=== PATIENT | female | born 1985 | race Caucasian/White ===

== ENCOUNTER → 2020-11-10 | Outpatient (CLI) | payer OTHER | LOC: US 13:31 | DX: O12.00 Gestational edema, unspecified trimester (principal); Z3A.00 Weeks of gestation of pregnancy not specified | CPT/HCPCS: 93971 ==

== ENCOUNTER 2020-12-25 22:39 | Emergency (ER) | payer OTHER ==
[2020-12-25] MEDS ORDERED: CLEOCIN HCL300 MG PO (23:11)
== END 2020-12-25 23:29 | disposition home or self-care (01) ==
LOC: ER1 22:39
DX: O99.612 Diseases of the digestive system complicating pregnancy, second trimester (principal); K04.7 Periapical abscess without sinus; K02.9 Dental caries, unspecified; F17.200 Nicotine dependence, unspecified, uncomplicated; Z3A.27 27 weeks gestation of pregnancy; Z88.0 Allergy status to penicillin
CPT/HCPCS: 99282

== ENCOUNTER 2021-02-12 18:57 | Outpatient (CLI) | payer OTHER ==
[~2021-02-12 18:57] MED LIST: CLEOCIN HCL300 MG PO
== END 2021-02-12 21:15 | disposition home or self-care (01) ==
LOC: GENOP 18:57
DX: O47.03 False labor before 37 completed weeks of gestation, third trimester (principal); O44.03 Complete placenta previa NOS or without hemorrhage, third trimester; Z3A.34 34 weeks gestation of pregnancy
CPT/HCPCS: 59025

== ENCOUNTER 2021-02-21 19:01 | Outpatient (CLI) | payer OTHER | END 2021-02-21 20:53 | disposition home or self-care (01) | LOC: GENOP 19:01 | DX: O47.00 False labor before 37 completed weeks of gestation, unspecified trimester (principal); Z3A.36 36 weeks gestation of pregnancy | CPT/HCPCS: 59025 ==

== ENCOUNTER 2021-02-25 05:52 | Outpatient (CLI) | payer OTHER | END 2021-02-25 07:35 | disposition home or self-care (01) | LOC: GENOP 05:52 | DX: O47.1 False labor at or after 37 completed weeks of gestation (principal); Z3A.37 37 weeks gestation of pregnancy | CPT/HCPCS: G0463 ==

== ENCOUNTER 2021-03-01 05:27 | Inpatient (IN) | payer OTHER ==
[~2021-03-01] VITALS: Ht 162.6 cm; Wt 68.9 kg
[2021-03-01] MEDS ORDERED: PRENATAL VITAM1 EAC6 PO (06:22)
[2021-03-01 06:24] LABS: HEMOGLOBIN 11.6 gm/dl (12.3-15.3); RED BLOOD COUNT 3.45 M/UL (4.00-5.10); WHITE BLOOD COUNT 13.2 K/UL (4.5-11.0)
[2021-03-01] MEDS ORDERED: COLACE100 MG PO (11:11)
[2021-03-01] MEDS ORDERED: HEMOCYTE324 MG PO (11:11)
[2021-03-01] MEDS ORDERED: PERCOCET 5/325 T1 EA PO (11:11)
[2021-03-02 05:20] LABS: HEMOGLOBIN 9.9 gm/dl (12.3-15.3)
[2021-03-03] MEDS ORDERED: TYLOPHEN500 MG PO (08:17)
== END 2021-03-03 15:57 | disposition home or self-care (01) | DRG 788 ==
LOC: OB 05:27
PROVIDERS: ADMIT Obstetrics & Gynecology
PROC: 3E0234Z Introduction of Serum, Toxoid and Vaccine into Muscle, Percutaneous Approach (ICD-10-PCS; 2021-03-01)
PROC: 10D00Z1 Extraction of Products of Conception, Low, Open Approach (ICD-10-PCS; principal; 2021-03-01 07:30)
DX: O44.03 Complete placenta previa NOS or without hemorrhage, third trimester (principal); Z3A.37 37 weeks gestation of pregnancy; Z37.0 Single live birth; Z20.822 Contact with and (suspected) exposure to COVID-19; Z82.5 Family history of asthma and other chronic lower respiratory diseases; Z82.49 Family history of ischemic heart disease and other diseases of the circulatory system; Z88.0 Allergy status to penicillin; Z23 Encounter for immunization
CPT/HCPCS: 36415; 81001; 85014; 85018; 85025; 90715; C9113; J1170; J1580; J2210; J2274; J2370; J2405; J2590; J2795; J3010; J7120